=== PATIENT | female | born 1975 | race Caucasian/White ===

== ENCOUNTER 2016-09-06 20:44 | Emergency (ER) | payer OTHER ==
[~2016-09-06] VITALS: Ht 157.5 cm; Wt 86.4 kg
[~2016-09-06 20:44] MED LIST: BCP TD; LEVOTHROID0.025 MG PO; LEVOTHYROXIN0.088 MG PO; LEVOXYL0.15 MG PO; MOTRIN800 MG PO; VICODIN 5/5001 UDTAB PO
[2016-09-06 20:47] VITALS: TEMP 97.7
[2016-09-06 21:37] LABS: HEMOGLOBIN 15.2 g/dl (12.5-16.0); MEAN CELL VOLUME 85 fl (80.0-100.0); MEAN CORPUSCULAR HEMOGLOBIN 31 pg (27.0-31.0); MEAN CORPUSCULAR HGB CONC 36 g/dl (33.0-37.0); MEAN PLATELET VOLUME 10.4 fl (7.4-10.4); PLATELET COUNT 281 K/mm3 (130-400); RED BLOOD COUNT 4.92 M/mm3 (4.10-5.30); REDCELL DISTRIBUTION WIDTH-CV 12.7 % (11.5-14.5); WHITE BLOOD COUNT 11.5 K/mm3 (4.8-10.8)
[2016-09-06 21:40] LABS: ADD PATHOLOGY DIFF REVIEW NO
[2016-09-06 21:57] LABS: ADJUSTED CALCIUM 8.4 mg/dL (8.4-10.2); ALBUMIN 5.1 gm/dL (3.5-5.0); BILIRUBIN,TOTAL 1.3 mg/dL (0.0-1.0); CALCIUM 9.3 mg/dL (8.4-10.2); CREATININE, serum 0.74 mg/dL (0.52-1.25); POTASSIUM 3.2 mmol/L (3.4-5.0); TOTAL PROTEIN 8.3 gm/dL (6.4-8.2)
[2016-09-06 22:22] LABS: BAND 3 % (0-10); EOSINOPHIL 2 % (0-4); NEUTROPHILS 29 % (42.0-75.2); PLATELET ESTIMATE NORMAL (NORMAL); TOTAL CELLS COUNTED 100
[2016-09-06] MEDS ORDERED: ATIVAN2 MG PO (22:31)
[2016-09-06 23:47] VITALS: BP 140/87; PULSE 80
== END 2016-09-06 23:51 | disposition home or self-care (01) ==
LOC: COL.ER 20:44
PROVIDERS: Emergency Medicine
DX: E87.6 Hypokalemia (principal); F41.9 Anxiety disorder, unspecified; E11.9 Type 2 diabetes mellitus without complications; E03.9 Hypothyroidism, unspecified; Z98.890 Other specified postprocedural states
CPT/HCPCS: J2060; J7030

== ENCOUNTER 2023-02-01 22:08 | Inpatient (IN) | payer BC ==
[~2023-02-01] VITALS: Ht 157.5 cm; Wt 70.0 kg
[~2023-02-01 22:08] MED LIST changes: +ATIVAN2 MG PO
[2023-02-01 23:25] LABS: COLLECTION METHOD CLEAN CATCH
[2023-02-01 23:27] LABS: BASO # 0.1 K/mm3 (0.0-0.2); BASO % 0.5 % (0.0-2.0); EOS # 0.2 K/mm3 (0.0-0.7); EOS % 1.9 % (0.0-4.0); GRAN # 6.4 K/mm3 (1.4-6.5); GRAN % 52.5 % (42.2-75.2); HEMATOCRIT 45.9 % (37.0-47.0); HEMOGLOBIN 16.5 g/dl (12.5-16.0); LYMPH # 4.6 K/mm3 (1.2-3.4); LYMPH % 37.9 % (20.0-51.0); MEAN CELL VOLUME 84 fl (80.0-100.0); MEAN CORPUSCULAR HEMOGLOBIN 30 pg (27-31); MEAN CORPUSCULAR HGB CONC 36 g/dl (33.0-37.0); MEAN PLATELET VOLUME 10.1 fl (7.4-10.4); MONO # 0.8 K/mm3 (0.1-0.6); MONO % 6.9 % (1.7-9.3); PLATELET COUNT 263 K/mm3 (130-400); RED BLOOD COUNT 5.47 M/mm3 (4.10-5.30); REDCELL DISTRIBUTION WIDTH-CV 13.2 % (11.5-14.5)
[2023-02-01 23:47] LABS: URINE APPEARANCE Clear (CLEAR/HAZY); URINE COLOR Yellow (YELLOW)
[2023-02-01 23:48] LABS: URINE BLOOD TRACE-INTACT (NEGATIVE); URINE GLUCOSE 3+ (NEGATIVE); URINE KETONE TRACE (NEGATIVE); URINE NITRATE Negative (NEGATIVE); URINE PROTEIN(semi-quant) 2+ (NEGATIVE)
[2023-02-01 23:48] LABS: ALBUMIN 4.6 gm/dL (3.5-5.0); BILIRUBIN,TOTAL 1.2 mg/dL (0.2-1.2); C-REACTIVE PROTEIN 0.33 mg/dL (0.00-0.50); CALCIUM 9.8 mg/dL (8.4-10.2); CREATININE, serum 0.74 mg/dL (0.57-1.11); POTASSIUM 3.7 mmol/L (3.5-4.5); TOTAL PROTEIN 7.9 gm/dL (6.2-8.1)
[2023-02-01 23:53] LABS: MUCOUS Present (NOT PRESENT); URINE RBC 0-2 /hpf (0-2)
[2023-02-01 23:54] LABS: URINE BACTERIA Moderate /hpf (NONE SEEN)
[2023-02-02] VITALS (12 sets, daily range): BP systolic 96–144; BP diastolic 47–79; PULSE 69–87; TEMP 97.1–98.2
[2023-02-02] MEDS ORDERED: GLUCOPHAGE XR500 M1 PO (03:26)
[2023-02-02] MEDS ORDERED: GLUCOTROL 5M5 MG/TAB PO (03:34)
[2023-02-02] MEDS ORDERED: LEXAPRO 10MG10 MG PO (03:34)
[2023-02-02] MEDS ORDERED: ZEPBOUND10 MG/0.5 SQ (03:35)
[2023-02-02] MEDS ORDERED: LIPITOR20 MG PO (03:35)
[2023-02-02] MEDS ORDERED: MOUNJARO7.5 MG/0.5 SQ (03:36)
[2023-02-02] MEDS ORDERED: EUTHYROX150 MCG PO (03:37)
[2023-02-02] MEDS ORDERED: TEMOVATE0.05% TP (03:37)
[2023-02-02] MEDS ORDERED: ZYRTEC 10MG10 MG PO (03:38)
--- NOTE | 2023-02-02 08:58 | NUR ---
PT ARRIVED TO FLOOR FROM ER AT 0825. VITALS ARE STABLE. PT RATES PAIN 6/10 IN THE ABDOMEN. IV FLUIDS ARE RUNNING. PT IS INDEPENDENT IN ROOM. CALL LIGHT WITHIN REACH.
--- NOTE | 2023-02-02 15:13 | NUR ---
THIS NURSE CALLED DR TREJO AT PT REQUEST ABOUT NG TUBE AND LIQUID BOWEL MOVEMENT. MAYA GAVE VERBAL ORDERS THAT PT DOES NOT NEED NG TUBE BEFORE SURGERY.
--- NOTE | 2023-02-02 15:18 | NUR ---
PT ESCORTED DOWN TO PREOP AT THIS TIME.
--- NOTE | 2023-02-02 19:00 | NUR ---
PATIENT ADMITED INTO 349 POSTOP. ORIENTED BUT VERY DROWSY. VSS. NO COMPLAINTS. ABD IS DISTENDED WITH HYPO ACTIVE BOWLS. NG TO LIS WITH NO OUTPUT NOTED. ABD MIDLINE IS CD&I WITH GAUZE & TAPE. ABD SITES X2 ARE WELL APPROXIMATED. BONILLA TO DD WITH MOD AMOUNTS OF CLEAR YELLOW URINE. IV FLUIDS INFUSING INTO LEFT AC IV. NPO. HEAD TO TOE ASSESSMENT COMPLETE. NO FAMILY AT BEDSIDE. ORIENTED TO ROOM. CALL LIGHT IN REACH.
[2023-02-03] VITALS (20 sets, daily range): BP systolic 106–120; BP diastolic 58–70; PULSE 68–89; TEMP 97.6–98.4
[2023-02-03 06:46] LABS: MEAN CELL VOLUME 82 fl (80.0-100.0); MEAN CORPUSCULAR HGB CONC 37 g/dl (33.0-37.0); PLATELET COUNT 179 K/mm3 (130-400); RED BLOOD COUNT 4.32 M/mm3 (4.10-5.30); REDCELL DISTRIBUTION WIDTH-CV 12.9 % (11.5-14.5)
[2023-02-03 06:52] LABS: HEMATOCRIT 35.6 % (37.0-47.0); HEMOGLOBIN 13.1 g/dl (12.5-16.0); MEAN CORPUSCULAR HEMOGLOBIN 30 pg (27-31)
[2023-02-03 07:09] LABS: CALCIUM 8.6 mg/dL (8.4-10.2); CREATININE, serum 0.62 mg/dL (0.57-1.11); POTASSIUM 3.8 mmol/L (3.5-4.5)
--- NOTE | 2023-02-03 11:06 | NUR ---
D: Initial visit: Promotions Executive stopped by room on rounds. Pt was resting with her two daughters and in the room. A: Good conversation. Family has been long time [place] residents. No needs at this time. Pt appreciated the visit. P: Promotions Executive informed pt that if she needed anything to let her nurse know. Promotions Executive will follow up as needed.
--- NOTE | 2023-02-03 16:41 | NUR ---
reinforcing steel worker met with patient to discuss discharge planning. Patient lives in [place] with her , Carlos, P# [phone]. Patient wanted to add her oldest daughter as a secondary contact [employer], P# [phone]. PCP Dr. Ortiz, Pharmacy is [facility]. No issues affording medications. Patient uses [facility] or discounts when needed. Patient does not have a DPOA-HC, SW left a blank DPOA-HC form for her to review if she wished to create one. Patient has no DME at this time and is independent with all ADLS. Patient has transportation to and from appointments. Patient would like to return home at time of discharge. Discharge Plan: Home
--- NOTE | 2023-02-03 21:45 | NUR ---
2000 - PT A&O X4 LAYING IN BED. VSS ON ROOM AIR. DENYING N/V. STATES PAIN IS 10/10 IN ABD & THROAT, EDUCATED PT ON MED ASST & PT STATES UNDERSTANDING & PUSHED BUTTON. X2 LAP SITES & MIDLINE DRESSINGS CDI. PT DENYING PASSING GAS OR BM. NG TO LIS WITH NO OUTPUT NOTED. BONILLA TO DD WITH YELLOW OUTPUT. LR INFUSING TO LEFT AC. CALL LIGHT IN REACH & PT DENYING FURTHER NEEDS. 2144 - PT STATES "MY PAIN IS MUCH BETTER, I FEEL COMFORTABLE NOW". DENYING FURTHER NEEDS
[2023-02-04] VITALS (14 sets, daily range): BP systolic 97–148; BP diastolic 59–77; PULSE 67–92; TEMP 97.9–98.7
--- NOTE | 2023-02-04 05:38 | NUR ---
PT RESTING IN BED WITH EVEN & UNLABORED RESP. PT C/O NONPRODUCTIVE COUGH THROUGHOUT NIGHT. NG REMAINS TO LIS WITH NO OUTPUT. BONILLA TO DD WITH ERIN OUTPUT. AND MOLDER PUNCH TO LEFT AC. CALL LIGHT IN REACH
--- NOTE | 2023-02-04 07:20 | NUR ---
CLAMPED NG TUBE PER . PT CONTINUES TO RATED PAIN 10/10. GASTROENTEROLOGY NURSE PRACTITIONER AND IV RUNNING TO LFA ORDERED. PT CONTINUES TO REACH MAX LIMIT ON GASTROENTEROLOGY NURSE PRACTITIONER.
--- NOTE | 2023-02-04 07:22 | NUR ---
ORDERED PT AND OT FOR PATIENT. PT RELUCTANT TO MOVE.
--- NOTE | 2023-02-04 08:58 | NUR ---
PT UP TO RECLINER WITH THERAPY. EATING AND DRINKING NO NAUSEA VOMITING. POSSIBLE DISCHARGE TO [facility] LATER TODAY.
--- NOTE | 2023-02-04 09:48 | NUR ---
Initial visit; Patient appears to be quite ill. offered prayer and talked about Holy Communion with patient who stated that [employer] came yesterday and offered Holy Communion. will keep Hanane in her prayers. She thanked ,
--- NOTE | 2023-02-04 09:59 | NUR ---
NG TUBE DISCONTINUED PER ORDERS PT TOLERATED WELL.
--- NOTE | 2023-02-04 10:35 | NUR ---
BEGGINING TO TAKE ICE CHIPS.
--- NOTE | 2023-02-04 11:32 | NUR ---
BONILLA CATHETER DISCONTINUED PER ORDERS. PT TOLERATED WELL.
[2023-02-04] MEDS ORDERED: PRILOTC PO (15:03)
--- NOTE | 2023-02-04 21:27 | NUR ---
Patient assessed around 2004. Alert and oriented, and able to make needs known. Reports pain is around a 5 to abdomen. Has Dilaudid AGRICULTURAL SCIENCE PROFESSOR pump. Peripheral IV to left AC with IV fluid and Dilaudid running per orders. Denies having SOB and dyspnea. LS CTA in upper lobes, diminished in lower. HRR. Moore to midline and two sites to left side of abdomen are intact, edges well approximated, no drainage. Open to air. BSAx4. Reports she has not started passing gas yet. Is tolerating ice chips and sip of water with no nausea. Patient voices no questions, needs, or concerns at this time. In bed with call light within reach. Bed alarm on.
[2023-02-05] VITALS (12 sets, daily range): BP systolic 100–119; BP diastolic 57–71; PULSE 71–80; TEMP 98.3–99.5
--- NOTE | 2023-02-05 05:28 | NUR ---
Continues on IV fluids and Dilaudid PSYCHOLOGY ASSOCIATE pump per orders. Did ambulate with this nurse to the bathroom. Denies nausea. Continues to deny passing gas. Voices no questions, needs or concerns at this time. In bed with call light within reach.
[2023-02-05 07:15] LABS: HEMOGLOBIN 11.9 g/dl (12.5-16.0); MEAN CELL VOLUME 86 fl (80.0-100.0); MEAN CORPUSCULAR HEMOGLOBIN 30 pg (27-31); MEAN CORPUSCULAR HGB CONC 35 g/dl (33.0-37.0); MEAN PLATELET VOLUME 10.1 fl (7.4-10.4); PLATELET COUNT 173 K/mm3 (130-400); RED BLOOD COUNT 3.97 M/mm3 (4.10-5.30); REDCELL DISTRIBUTION WIDTH-CV 12.7 % (11.5-14.5)
[2023-02-05 07:24] LABS: HEMATOCRIT 34.3 % (37.0-47.0)
[2023-02-05 07:35] LABS: CALCIUM 8.2 mg/dL (8.4-10.2); CREATININE, serum 0.56 mg/dL (0.57-1.11); POTASSIUM 3.7 mmol/L (3.5-4.5)
--- NOTE | 2023-02-05 10:06 | NUR ---
PATIENT ALERT AND ORIENTED BUT DROWSY. PATIENT DENIES PASSING ANY GAS. PATIENT ENCOURAGED TO AMBULATE THIS MORNING. MIDLINE INCISION WITH KASHMIR INTACT, TWO LAP SITES WITH KASHMIR INTACT. LR RUNNING INTO LEFT AC AT 100ML/HOUR. PATIENT IN BED, CALL LIGHT IN REACH. NO FURTHER NEEDS.
--- NOTE | 2023-02-05 11:22 | NUR ---
QM NURSE DC'D. PATIENT ENCOURAGED TO AMBULATE. PATIENT EDUCATED ON NEW PAIN MEDS FOR MANAGEMENT.
--- NOTE | 2023-02-05 16:52 | NUR ---
PATIENT TOLERATING CLEARS, PATIENT REPORTS PASSING GAS A FEW TIMES AFTER AMBULATING WITH THERAPY. PATIENT'S PAIN HAS DECREASED, ONLY ASKING FOR IV MORPHINE ONCE.
--- NOTE | 2023-02-05 19:15 | NUR ---
Received change of shift report from day shift nurse. Patient resting in bed, spouse at bedside. Call light in reach. No needs reported at this time.
[2023-02-06] VITALS (11 sets, daily range): BP systolic 96–125; BP diastolic 59–68; PULSE 59–66; TEMP 97.4–98
--- NOTE | 2023-02-06 06:16 | NUR ---
Patient requested and given IV morphine, reporting pain level of 9/10 when asked during patient's waking period. Patient rested with eyes closed again, awakened and responded that she still wanted the IV morphine. See MAR for pain med given.
[2023-02-06 06:21] LABS: BASO % 0.3 % (0.0-2.0); EOS # 0.2 K/mm3 (0.0-0.7); EOS % 2.7 % (0.0-4.0); GRAN % 52.6 % (42.2-75.2); HEMOGLOBIN 11.7 g/dl (12.5-16.0); LYMPH # 2.8 K/mm3 (1.2-3.4); LYMPH % 37.5 % (20.0-51.0); MEAN CELL VOLUME 83 fl (80.0-100.0); MEAN CORPUSCULAR HEMOGLOBIN 30 pg (27-31); MEAN CORPUSCULAR HGB CONC 36 g/dl (33.0-37.0); MEAN PLATELET VOLUME 10.3 fl (7.4-10.4); MONO # 0.5 K/mm3 (0.1-0.6); MONO % 6.6 % (1.7-9.3); PLATELET COUNT 188 K/mm3 (130-400); RED BLOOD COUNT 3.89 M/mm3 (4.10-5.30); REDCELL DISTRIBUTION WIDTH-CV 12.3 % (11.5-14.5)
[2023-02-06 06:22] LABS: HEMATOCRIT 32.3 % (37.0-47.0)
[2023-02-06 06:44] LABS: CALCIUM 8.4 mg/dL (8.4-10.2); CREATININE, serum 0.53 mg/dL (0.57-1.11); POTASSIUM 3.4 mmol/L (3.5-4.5)
--- NOTE | 2023-02-06 06:50 | NUR ---
Change of shift report given to day shift nurseElena.
--- NOTE | 2023-02-06 09:37 | NUR ---
PATIENT ALERT AND ORIENTED X4. VSS. PATIENT HERE FOR SBO. PATIENT REPORTS PASSING GAS THIS MORNING. DIET ADVANCED TO FULLS, IV INT TO LEFT AC. PO PAIN MEDS GIVEN. MIDLINE INCISION WITH KASHMIR INTACT, TWO LAP SITES WITH KASHMIR INTACT. PATIENT RESTING IN BED, CALL LIGHT IN REACH. NO FURTHER NEEDS.
--- NOTE | 2023-02-06 18:02 | NUR ---
PATIENT TOLERATING DIET, REPORTS INCREASED GAS. PAIN MANAGED WITH PO NARCOTICS.
--- NOTE | 2023-02-06 21:42 | NUR ---
patient lying in bed, alert and oriented x4. pt denies chest pain and shortness of breath. reports aching pain in the mid abd rated as 5/10, norco given per request. IV in LAC is patent with LR running at 100 per orders, site is clean dry and intact. midline abd incision site with kody is open to air, clean dry and intact, left abd x2 incision site with kody open to air and clean dry and intact as well. pt has no further needs, questions or concerns at this time. pt indp. in room with steady gait, call light within reach. will continue to monitor.
[2023-02-07 00:11] VITALS: BP 114/71; PULSE 58; TEMP 97.6
[2023-02-07 00:25] VITALS: BP_SYST 114
[2023-02-07 04:49] VITALS: BP 102/60; PULSE 59; TEMP 98
[2023-02-07 04:51] VITALS: BP_SYST 102
[2023-02-07 07:50] VITALS: BP 97/67; PULSE 63; TEMP 98
--- NOTE | 2023-02-07 07:52 | NUR ---
PT RESTING IN BED. VSS ASSESSMENTS COMPLETE. KASHMIR INTACT TO MIDLINE INCISION. PT DENIES NEEDS AT THIS TIME. IV TO LFA.
[2023-02-07 09:00] VITALS: BP_SYST 97
[2023-02-07] MEDS ORDERED: NORCO 325 MG-51 TAB PO ×3 (09:35→10:45)
[2023-02-07] MEDS ORDERED: ZOFRAN ODT4 MG PO ×2 (09:35)
--- NOTE | 2023-02-07 10:40 | NUR ---
discharge instructions reviewed with pt. questions answered. pt left floor per
== END 2023-02-07 10:45 | disposition home or self-care (01) | DRG 336 ==
LOC: COL.ER 22:08 → SURG 02-02 02:48
PROVIDERS: Nurse Practitioner Primary Care; Physician Assistant; Surgery; ADMIT Internal Medicine
PROC: 0DN80ZZ Release Small Intestine, Open Approach (ICD-10-PCS; principal; 2023-02-02 14:30)
PROC: 0DJD4ZZ Inspection of Lower Intestinal Tract, Percutaneous Endoscopic Approach (ICD-10-PCS; 2023-02-02 14:30)
DX: K56.50 Intestinal adhesions [bands], unspecified as to partial versus complete obstruction (principal); K91.89 Other postprocedural complications and disorders of digestive system; K56.7 Ileus, unspecified; I10 Essential (primary) hypertension; E11.9 Type 2 diabetes mellitus without complications; E03.9 Hypothyroidism, unspecified; F32.A Depression, unspecified; E86.9 Volume depletion, unspecified; E78.5 Hyperlipidemia, unspecified; E87.6 Hypokalemia; F41.9 Anxiety disorder, unspecified; D64.9 Anemia, unspecified; D72.829 Elevated white blood cell count, unspecified; Z79.890 Hormone replacement therapy; Z79.899 Other long term (current) drug therapy; Z23 Encounter for immunization; Z91.018 Allergy to other foods; Z79.84 Long term (current) use of oral hypoglycemic drugs
CPT/HCPCS: OP; A4314; A9284; C9113; J0330; J0690; J1100; J1170; J1650; J1815; J1885; J2250; J2270; J2371; J2405; J2704; J2795; J3010; J7030; J7120; Q9967